=== PATIENT | female | born 1970 | race Caucasian/White ===

== ENCOUNTER 2017-04-10 00:36 | Emergency (ER) | payer OTHER ==
[2017-04-10] MEDS ORDERED: LORazepam TAB(*) 1 MG PO ONE ×2 (01:13→09:53)
[2017-04-10] MEDS ORDERED: Acetaminophen TAB* 325 MG ONE (01:57)
[2017-04-10] MEDS ORDERED: Acetaminophen TAB* 325 MG PO ONE (01:59)
[2017-04-10] MEDS ORDERED: Ondansetron TAB* 4 MG PO ONE (02:51)
[2017-04-10] MEDS ORDERED: Ondansetron ODT TAB* 4 MG PO ONE ×2 (02:54→06:15)
[2017-04-10 02:55] LABS: Urine Bilirubin Negative (Negative); Urine Glucose Negative (Negative); Urine Nitrite Negative (Negative)
[2017-04-10] MEDS ORDERED: Ondansetron ODT TAB* 4 MG ONE (02:55)
[2017-04-10 03:01] LABS: Comments Flag Yes; Hematocrit 37 % (35-47); Mean Corpuscular HGB Conc 32 g/dl (31-36); Mean Corpuscular Hemoglobin 32 pg (27-31); Mean Corpuscular Volume 97 fL (80-97); Mean Platelet Volume 8 um3 (7.4-10.4); Red Cell Distribution Width 16 % (10.5-15); White Blood Count 10.1 10^3/ul (3.5-10.8)
[2017-04-10 03:02] LABS: Add Diff/Slide Review? Slide Review Added
[2017-04-10 03:05] LABS: ALT 12 U/L (7-52); AST 16 U/L (13-39); Albumin 4.1 g/dL (3.2-5.2); Alkaline Phosphatase 62 U/L (34-104); Anion Gap 7 mmol/L (2-11); BUN/Creatinine Ratio 16.4 (8-20); Blood Urea Nitrogen 10 mg/dL (6-24); CO2 Carbon Dioxide 25 mmol/L (22-32); Calcium 9.4 mg/dL (8.6-10.3); Chloride 106 mmol/L (101-111); EGFR African American 134.1 (>60); EGFR Non-African American 104.2 (>60); Globulin 3.3 g/dL (2-4); Glucose 82 mg/dL (70-100); Potassium 3.6 mmol/L (3.5-5.0); Sodium 138 mmol/L (133-145); Total Protein 7.4 g/dL (6.4-8.9)
[2017-04-10 03:07] LABS: Benzodiazepine Urine Screen Presumptive Positive (None Detect)
[2017-04-10 03:10] LABS: Acetaminophen < 15 mcg/mL; Alcohol 227 mg/dL (<10); Salicylate < 2.50 mg/dL (<30)
[2017-04-10 03:21] LABS: TSH (Thyroid Stimulating Horm) 5.38 mcIU/mL (0.34-5.60)
--- NOTE | 2017-04-10 03:28 | ED ---
Zahida Song Rebecca, scribed for Nathalie Vargas MD on 04/10/17 at 0100 . Psychiatric Complaint - HPI Summary HPI Summary: Pt is a 47 y/o F who presents to ED with mild depression. Pt reports she is not from [place] and [place] was picked up by a police car. She reports "I don't really know what I said" to the police officers and that she is okay. Reports she is having a panic attack and a really bad day and would like to go home. Denies SIs/HIs. PMHx Bipolar Disorder and PTSD for which she just stopped her medication (Lamictal, Celexa, Prazosin and Xanax). - History Of Current Complaint Chief Complaint: EDMentalHealth Time Seen by Provider: 04/10/17 00:59 Hx Obtained From: Patient Onset/Duration: Still Present Severity Initially: Mild Severity Currently: Mild Character: Depressed Associated Signs And Symptoms: Positive: Negative Related History: Positive For: Prior Psychiatric Issues - PTSD, bipolar Has Suicidal: Denies: Thoughts Has Homicidal: Denies: Thoughts - Allergies/Home Medications Allergies/Adverse Reactions: Allergies Allergy/AdvReac Type Severity Reaction Status Date / Time No Known Allergies Allergy Verified 04/10/17 01:58 PMH/Surg Hx/FS Hx/Imm Hx Endocrine/Hematology History: Denies: Hx Diabetes Cardiovascular History: Denies: Hx Hypertension History: Reports: Other Problems/Disorders - Ulcerative colitis Psychiatric History: Reports: Hx Post Traumatic Stress Disorder, Hx Bipolar Disorder - Surgical History Surgery Procedure, Year, and Place: SPLENECTOMY. METAL PLATE AND SCREWS IN [place] Infectious Disease History: No Infectious Disease History: Denies: Traveled Outside the [place] in Last 30 Days - Family History Known Family History: Negative: Hypertension - Social History Alcohol Use: Rare Substance Use Type: Reports: None Smoking Status (MU): Current Some Day Smoker Review of Systems Constitutional: Negative Eyes: Negative ENT: Negative Cardiovascular: Negative Respiratory: Negative Gastrointestinal: Negative Genitourinary: Negative Musculoskeletal: Negative Skin: Negative Neurological: Negative Positive: Depressed - mild, Other - Denies SIs/HIs All Other Systems Reviewed And Are Negative: Yes Physical Exam - Summary Physical Exam Summary: General: Well appearing, no pain distress Skin: Warm, Skin Color Reflects Adequate Perfusion, Dry Eyes: EOMI, CARROL ENT: Pharynx normal, TMs normal Neck: Supple, nontender Respiratory: CTA, breath sounds present, no rhonchi, no wheezes, no rales Cardiovascular: RRR, no murmur, no rub, no gallop Abdomen: Soft, nontender, Non-distended, no guarding, no rebound Bowel: Present Musculoskeletal: GRAY, No edema Neuro: Sensory/motor intact, A&Ox3, CN intact 2-12 Psych: Anxious Triage Information Reviewed: Yes Vital Signs On Initial Exam: Initial Vitals Temp Pulse Resp BP Pulse Ox 97.7 F 82 18 155/96 100 04/10/17 00:39 04/10/17 00:39 04/10/17 00:39 04/10/17 00:39 04/10/17 00:39 Vital Signs Reviewed: Yes Diagnostics - Vital Signs Vital Signs Temp Pulse Resp BP Pulse Ox 04/10/17 00:39 97.7 F 82 18 155/96 100 - Laboratory Lab Results: Lab Results 04/10/17 04/10/17 04/10/17 Range/Units 02:33 02:33 02:33 WBC 10.1 (3.5-10.8) 10^3/ul RBC 3.80 L (4.0-5.4) 10^6/ul Hgb 12.0 (12.0-16.0) g/dl Hct 37 (35-47) % MCV 97 (80-97) fL MCH 32 H (27-31) pg MCHC 32 (31-36) g/dl RDW 16 H (10.5-15) % Plt Count 434 (150-450) 10^3/ul MPV 8 (7.4-10.4) um3 Neut % (Auto) 36.3 L (38-83) % Lymph % (Auto) 43.6 (25-47) % Wells % (Auto) 11.6 H (1-9) % Eos % (Auto) 7.9 H (0-6) % Baso % (Auto) 0.6 (0-2) % Absolute Neuts (auto) 3.7 (1.5-7.7) 10^3/ul Absolute Lymphs (auto) 4.4 (1.0-4.8) 10^3/ul Absolute Monos (auto) 1.2 H (0-0.8) 10^3/ul Absolute Eos (auto) 0.8 H (0-0.6) 10^3/ul Absolute Basos (auto) 0.1 (0-0.2) 10^3/ul Absolute Nucleated RBC 0.01 10^3/ul Nucleated RBC % 0.1 Sodium 138 (133-145) mmol/L Potassium 3.6 (3.5-5.0) mmol/L Chloride 106 (101-111) mmol/L Carbon Dioxide 25 (22-32) mmol/L Anion Gap 7 (2-11) mmol/L BUN 10 (6-24) mg/dL Creatinine 0.61 (0.51-0.95) mg/dL Est GFR ( Amer) 134.1 (>60) Est GFR (Non-Af Amer) 104.2 (>60) BUN/Creatinine Ratio 16.4 (8-20) Glucose 82 (70-100) mg/dL Calcium 9.4 (8.6-10.3) mg/dL Total Bilirubin 0.20 (0.2-1.0) mg/dL AST 16 (13-39) U/L ALT 12 (7-52) U/L Alkaline Phosphatase 62 (34-104) U/L Total Protein 7.4 (6.4-8.9) g/dL Albumin 4.1 (3.2-5.2) g/dL Globulin 3.3 (2-4) g/dL Albumin/Globulin Ratio 1.2 (1-3) TSH 5.38 (0.34-5.60) mcIU/mL Urine Color Yellow Urine Appearance Cloudy Urine pH 5.0 (5-9) Ur Specific [place] 1.010 (1.010-1.030) Urine Protein Negative (Negative) Urine Ketones Negative (Negative) Urine Blood Negative (Negative) Urine Nitrate Negative (Negative) Urine Bilirubin Negative (Negative) Urine Urobilinogen Negative (Negative) Ur Leukocyte Esterase Negative (Negative) Urine Glucose Negative (Negative) Salicylates < 2.50 (<30) mg/dL Urine Opiates Screen (None Detect) Acetaminophen < 15 mcg/mL Ur Barbiturates Screen (None Detect) Ur Phencyclidine Scrn (None Detect) Ur Amphetamines Screen (None Detect) U Benzodiazepines Scrn (None Detect) Urine Cocaine Screen (None Detect) U Cannabinoids Screen (None Detect) Serum Alcohol 227 H (<10) mg/dL 04/10/17 Range/Units 02:33 WBC (3.5-10.8) 10^3/ul RBC (4.0-5.4) 10^6/ul Hgb (12.0-16.0) g/dl Hct (35-47) % MCV (80-97) fL MCH (27-31) pg MCHC (31-36) g/dl RDW (10.5-15) % Plt Count (150-450) 10^3/ul MPV (7.4-10.4) um3 Neut % (Auto) (38-83) % Lymph % (Auto) (25-47) % Wells % (Auto) (1-9) % Eos % (Auto) (0-6) % Baso % (Auto) (0-2) % Absolute Neuts (auto) (1.5-7.7) 10^3/ul Absolute Lymphs (auto) (1.0-4.8) 10^3/ul Absolute Monos (auto) (0-0.8) 10^3/ul Absolute Eos (auto) (0-0.6) 10^3/ul Absolute Basos (auto) (0-0.2) 10^3/ul Absolute Nucleated RBC 10^3/ul Nucleated RBC % Sodium (133-145) mmol/L Potassium (3.5-5.0) mmol/L Chloride (101-111) mmol/L Carbon Dioxide (22-32) mmol/L Anion Gap (2-11) mmol/L BUN (6-24) mg/dL Creatinine (0.51-0.95) mg/dL Est GFR ( Amer) (>60) Est GFR (Non-Af Amer) (>60) BUN/Creatinine Ratio (8-20) Glucose (70-100) mg/dL Calcium (8.6-10.3) mg/dL Total Bilirubin (0.2-1.0) mg/dL AST (13-39) U/L ALT (7-52) U/L Alkaline Phosphatase (34-104) U/L Total Protein (6.4-8.9) g/dL Albumin (3.2-5.2) g/dL Globulin (2-4) g/dL Albumin/Globulin Ratio (1-3) TSH (0.34-5.60) mcIU/mL Urine Color Urine Appearance Urine pH (5-9) Ur Specific [place] (1.010-1.030) Urine Protein (Negative) Urine Ketones (Negative) Urine Blood (Negative) Urine Nitrate (Negative) Urine Bilirubin (Negative) Urine Urobilinogen (Negative) Ur Leukocyte Esterase (Negative) Urine Glucose (Negative) Salicylates (<30) mg/dL Urine Opiates Screen None detected (None Detect) Acetaminophen mcg/mL Ur Barbiturates Screen None detected (None Detect) Ur Phencyclidine Scrn None detected (None Detect) Ur Amphetamines Screen None detected (None Detect) U Benzodiazepines Scrn Presumptive positive H (None Detect) Urine Cocaine Screen None detected (None Detect) U Cannabinoids Screen None detected (None Detect) Serum Alcohol (<10) mg/dL Result Diagrams: 04/10/17 02:33 04/10/17 02:33 Lab Statement: Any lab studies that have been ordered have been reviewed, and results considered in the medical decision making process. Course/Dx - Course Course Of Treatment: pt arrived saying she had had a bad day and was not taking her bipolar meds and was just trying to get back to [place] but was anxious. It ends up that her blood alcohol was quite elevated, she will be ready for evaluation at 630 am and will be signed out to the am attending. - Differential Dx/Clinical Impression Provider Diagnosis: Bipolar 1 disorder, Alcohol intoxication Discharge - Discharge Plan Condition: Stable Disposition: OTHER Discharge Disposition Comment: to be determined The documentation as recorded by the Zahida tran Rebecca accurately reflects the service I personally performed and the decisions made by me, Nathalie Vargas MD.
[2017-04-10] MEDS ORDERED: Nicotine Inhaler* 10 MG AMP INH ONE (06:41)
[2017-04-10] MEDS ORDERED: Mouth Piece, Nicotine* 1 EACH CARTRIDGE ONE (06:42)
[2017-04-10] MEDS ORDERED: Nicotine Inhaler* 10 MG AMP ONE (06:42)
[2017-04-10] MEDS: Mouth Piece, Nicotine* 1 EACH CARTRIDGE INH ONE ×2 (06:49→07:00)
[2017-04-10 12:04] VITALS: BP 120/78
--- NOTE | 2017-04-10 18:37 | ED ---
Elvira Song Claudia, scribed for Mazin Velasquez MD on 04/10/17 at 1256 . Progress - Progress Note Progress Note: Sign-out received from Nathalie Vargas at 700am on 04/10/17. After [facility] and discussion with seismograph operator helper they recommend the pt be d/c home and follow-up with therapist. MDM: PT PRESENTS WITH INTOXICATION AFTER MEDICAL CLEARANCE THE PT WAS SEEN BY [facility] WHOM HAS RECOMMENDED THE PT BE D/C HOME AND FOLLOW-UP WITH THERAPIST. - Consult/PCP Time Called: 07:45 Course/Dx - Course Course Of Treatment: pt arrived saying she had had a bad day and was not taking her bipolar meds and was just trying to get back to [place] but was anxious. It ends up that her blood alcohol was quite elevated, she will be ready for evaluation at 630 am and will be signed out to the am attending. - Diagnoses Provider Diagnoses: Bipolar 1 disorder, Alcohol intoxication The documentation as recorded by the Elvira tran Claudia accurately reflects the service I personally performed and the decisions made by me, Mazin Velasquez MD.
== END 2017-04-10 13:16 ==
LOC: ED 00:36
DX: F31.9 Bipolar disorder, unspecified (principal); F10.129 Alcohol abuse with intoxication, unspecified; Z72.0 Tobacco use
CPT/HCPCS: 36415; 80053; 80307; 80320; 80329; 81003; 84443; 85025; 99285; A9270-GY; G0480

== ENCOUNTER 2017-08-08 15:02 | Emergency (ER) | payer MEDICAID, OTHER ==
[2017-08-08 15:14] VITALS: BP 99/64
--- NOTE | 2017-08-08 15:15 | UC ---
Throat Pain/Nasal Regan HPI - HPI Summary HPI Summary: 47 YEAR OLD FEMALE PRESENTS WITH SINUS CONGESTION AND COUGH. - History of Current Complaint Chief Complaint: UCEar Stated Complaint: EAR ACHE, AND SINUS CONGESTION Time Seen by Provider: 08/08/17 15:15 Hx Obtained From: Patient Hx Last Menstrual Period: 3 wks ago Onset/Duration: Sudden Onset Severity: Moderate Pain Scale Used: 0-10 Numeric - 5 Cough: Nonproductive - Allergies/Home Medications Allergies/Adverse Reactions: Allergies Allergy/AdvReac Type Severity Reaction Status Date / Time No Known Allergies Allergy Verified 08/08/17 15:14 PMH/Surg Hx/FS Hx/Imm Hx Previously Healthy: Yes - Surgical History Surgical History: Yes Surgery Procedure, Year, and Place: SPLENECTOMY. METAL PLATE AND SCREWS IN [place] - Family History Known Family History: Negative: Hypertension - Social History Alcohol Use: None Substance Use Type: None, Prescribed Smoking Status (MU): Former Smoker Review of Systems Constitutional: Negative Skin: Negative Eyes: Negative ENT: Negative Respiratory: Cough Cardiovascular: Negative Gastrointestinal: Negative Genitourinary: Negative Motor: Negative Neurovascular: Negative Musculoskeletal: Negative Neurological: Negative Psychological: Negative All Other Systems Reviewed And Are Negative: Yes Physical Exam Triage Information Reviewed: Yes Vital Signs: Initial Vital Signs Temp 36.4 C 08/08/17 15:10 Pulse 64 08/08/17 15:10 Resp 18 08/08/17 15:10 BP 99/64 08/08/17 15:10 Pulse Ox 100 08/08/17 15:10 Vital Signs Reviewed: Yes Eye Exam: Normal ENT Exam: Normal Dental Exam: Normal Neck exam: Normal Neck: Positive: 1 Respiratory: Positive: Rhonchi, Wheezing Cardiovascular Exam: Normal Abdominal Exam: Normal Musculoskeletal Exam: Normal Neurological Exam: Normal Psychological Exam: Normal Skin Exam: Normal Throat Pain/Nasal Course/Dx - Differential Dx/Diagnosis Provider Diagnoses: COUGH. SORE THROAT Discharge - Discharge Plan Condition: Stable Disposition: HOME Prescriptions: Amoxicillin PO (*) [Amoxicillin 875 MG (*)] 875 mg PO BID #20 tab Methylprednisolone [Medrol Dosepak 4 MG*] 4 mg PO .SEE LASHANDA INSTRUCTION #21 tab Pseudoephedrine HCl [Sudafed Congestion] 30 mg PO Q8H PRN #30 tab PRN Reason: Congestion Patient Education Materials: Sinusitis (ED) Forms: *Work Release Referrals: Non Staff,Doctor [Medical Doctor] -
--- NOTE | 2017-08-09 09:52 | UC ---
Progress - Progress Note Progress Note: [facility] but allergy to penicillin is on record at pharmacy. Order changed to doxycycline.
== END 2017-08-08 15:51 | disposition home or self-care (01) ==
LOC: UCEAST 15:02
DX: R05 Cough (principal); J02.9 Acute pharyngitis, unspecified; Z87.891 Personal history of nicotine dependence
CPT/HCPCS: 99212; G0463